=== PATIENT | female | born 1950 | race Caucasian/White ===

== ENCOUNTER → 2016-12-20 | Outpatient (CLI) | payer MEDICARE ==
[~2016-12-20] MED LIST: DARVOCET-N 1001 TAB PO; EFFEXOR XR PO; FIBRICOR105 MG PO; HCTZ PO; LISINOPRIL PO; PERCOCET 51 UDTAB 5/ PO; PRAVACHOL PO; PRAVASTATIN SOD40 MG PO; PRINIVIL40 MG PO; SANCTURA XR60 MG PO; SYNTHROID PO; SYNTHROID125 PO; VENLAFAXINE HC225 MG PO; VESICARE PO
--- NOTE | ~2016-12-20 | US85 ---
[facility] A Service of [facility] RADIOLOGY TEXT RESULTS PATIENT: SCARLETT UNGER LOCATION: CNIV : 50 UNIT #: [id number] AGE: [address]: VICKY MERRITT MD SEX: F ORDER DR: [id number] [facility] [address] [place], [place] [address] [id number] O MR#: [id number] Acc #: [id number] NAME: SCARLETT UNGER. : 1950 SEX: F STUDY DATE/TIME: 12/20/2016 15:40 UNIT: CNIV ROOM: STUDY DESCRIPTION: [facility] Attending Physician: Vicky Merritt M.D. Referring Physician: Vicky Merritt M.D. Ordering Physician: Vicky Merritt M.D. Primary Care Physician: Vicky Merritt M.D. MEDICAL IMAGING REPORT This report is preliminary unless electronic signature is present EXAM Left lower extremity venous ultrasound. HISTORY Left lower extremity pain for two months. TECHNIQUE Venous ultrasound examination of the left lower extremity was performed using grayscale, spectral Doppler and color flow Doppler imaging. FINDINGS The examination is negative. There is no evidence of left lower extremity deep venous thrombus from the groin to the lower calf. Visualized greater saphenous vein is also patent. IMPRESSION Negative examination. No evidence of left lower extremity deep venous thrombosis. Dictated by... Juan Francisco Le M.D. THIS IS AN ELECTRONICALLY VERIFIED REPORT Juan Francisco Le M.D. at 12/21/2016 12:24 PM HILARY/yessi TD: 12/21/2016 07:11 JOB #: [id number] [facility] A Service [facility] RADIOLOGY TEXT RESULTS PATIENT: SCARLETT UNGER LOCATION: CNIV : 50 UNIT #: [id number] AGE: [address]: VICKY MERRITT MD SEX: F ORDER DR: MEDICAL IMAGING REPORT COPY
== END | disposition home or self-care (01) ==
LOC: CNIV 15:05
DX: M79.89 Other specified soft tissue disorders (principal)
CPT/HCPCS: 93971